=== PATIENT | female | born 1985 | race African-American/Black ===

== ENCOUNTER 2017-03-22 13:00 | Emergency (ER) | payer SELFPAY ==
[2017-03-22] MEDS ORDERED: Ibuprofen 200 MG TAB ONE (13:57)
== END 2017-03-22 14:02 | disposition home or self-care (01) ==
LOC: NAV ERS 13:00
DX: S63.501A Unspecified sprain of right wrist, initial encounter (principal); K21.9 Gastro-esophageal reflux disease without esophagitis; E66.9 Obesity, unspecified; Y04.2XXA Assault by strike against or bumped into by another person, initial encounter
CPT/HCPCS: 99283

== ENCOUNTER 2017-12-29 09:28 | Emergency (ER) | payer SELFPAY | END 2017-12-29 10:24 | disposition home or self-care (01) | LOC: NAV ERS 09:28 | DX: J02.9 Acute pharyngitis, unspecified (principal); K21.9 Gastro-esophageal reflux disease without esophagitis | CPT/HCPCS: 87081; 87430; 99283 ==

== ENCOUNTER 2018-03-05 14:46 | Emergency (ER) | payer SELFPAY ==
[2018-03-05] MEDS ORDERED: Adacel (T-DAP) 0.5 ML VIAL ONE (15:07)
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
== END 2018-03-05 15:53 | disposition home or self-care (01) ==
LOC: NAV ERS 14:46
DX: S62.367A Nondisplaced fracture of neck of fifth metacarpal bone, left hand, initial encounter for closed fracture (principal); S52.602A Unspecified fracture of lower end of left ulna, initial encounter for closed fracture; S40.022A Contusion of left upper arm, initial encounter; S00.531A Contusion of lip, initial encounter; K21.9 Gastro-esophageal reflux disease without esophagitis; F32.9 Major depressive disorder, single episode, unspecified; Y00.XXXA Assault by blunt object, initial encounter
CPT/HCPCS: 26600; 90471; 90715

== ENCOUNTER 2018-06-19 07:46 | Emergency (ER) | payer MEDICAID, SELFPAY ==
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
== END 2018-06-19 08:52 | disposition home or self-care (01) ==
LOC: NAV ERS 07:46
DX: S52.602A Unspecified fracture of lower end of left ulna, initial encounter for closed fracture (principal); K21.9 Gastro-esophageal reflux disease without esophagitis; F32.9 Major depressive disorder, single episode, unspecified; X50.1XXA Overexertion from prolonged static or awkward postures, initial encounter
CPT/HCPCS: 25530

== ENCOUNTER 2018-06-22 07:50 | Emergency (ER) | payer MEDICAID, SELFPAY | END 2018-06-22 08:20 | disposition home or self-care (01) | LOC: NAV ERS 07:50 | DX: S62.102D Fracture of unspecified carpal bone, left wrist, subsequent encounter for fracture with routine healing (principal); F32.9 Major depressive disorder, single episode, unspecified; K21.9 Gastro-esophageal reflux disease without esophagitis | CPT/HCPCS: 29125 ==

== ENCOUNTER 2018-12-04 08:43 | Emergency (ER) | payer SELFPAY ==
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
== END 2018-12-04 12:19 | disposition home or self-care (01) ==
LOC: NAV ERS 08:43
DX: S52.601A Unspecified fracture of lower end of right ulna, initial encounter for closed fracture (principal); S00.81XA Abrasion of other part of head, initial encounter; K21.9 Gastro-esophageal reflux disease without esophagitis; F32.9 Major depressive disorder, single episode, unspecified; Y04.0XXA Assault by unarmed brawl or fight, initial encounter
CPT/HCPCS: 25530; 70450; 70486

== ENCOUNTER 2019-02-15 16:30 | Emergency (ER) | payer OTHER, SELFPAY ==
[2019-02-15] MEDS ORDERED: Lidocaine 1% (PF) 30 ML VIAL ONE (16:58)
== END 2019-02-15 17:20 | disposition home or self-care (01) ==
LOC: NAV ERS 16:30
DX: L02.422 Furuncle of left axilla (principal); K21.9 Gastro-esophageal reflux disease without esophagitis; F32.9 Major depressive disorder, single episode, unspecified
CPT/HCPCS: 10060; 87070; 87077; 87186; 87205; J2001

== ENCOUNTER 2019-10-27 09:35 | Emergency (ER) | payer OTHER | END 2019-10-27 10:26 | disposition home or self-care (01) | LOC: NAV ERS 09:35 | DX: B34.9 Viral infection, unspecified (principal); F32.9 Major depressive disorder, single episode, unspecified; K21.9 Gastro-esophageal reflux disease without esophagitis | CPT/HCPCS: 99283 ==

== ENCOUNTER 2022-07-25 12:06 | Emergency (ER) | payer OTHER | END 2022-07-25 12:41 | disposition home or self-care (01) | LOC: NAV ERS 12:06 | DX: H92.03 Otalgia, bilateral (principal); K21.9 Gastro-esophageal reflux disease without esophagitis; Z79.899 Other long term (current) drug therapy | CPT/HCPCS: 99283 ==

== ENCOUNTER 2024-04-19 17:02 | Emergency (ER) | payer OTHER ==
[2024-04-19] MEDS ORDERED: Acetaminophen 500 MG TAB ONE (17:12)
[2024-04-19 17:59] LABS: Influenza A by NAA Not Detected (NotDetected); Influenza B by NAA Not Detected (NotDetected); SARS-CoV-2 NAA Rapid Test DETECTED (NotDetected)
== END 2024-04-19 18:41 | disposition home or self-care (01) ==
LOC: NAV ERS 17:02
DX: U07.1 COVID-19 (principal)
CPT/HCPCS: 99284

== ENCOUNTER 2024-06-15 15:34 | Emergency (ER) | payer MEDICAID | END 2024-06-15 16:00 | disposition home or self-care (01) | LOC: NAV ERS 15:34 | DX: J02.0 Streptococcal pharyngitis (principal) | CPT/HCPCS: 99282 ==

== ENCOUNTER 2024-08-17 16:48 | Emergency (ER) | payer MEDICAID, SELFPAY ==
[2024-08-17] MEDS ORDERED: Ibuprofen 200 MG TAB ONE (16:58)
[2024-08-17] MEDS ORDERED: Benzocaine/Menthol 1 LOZ LOZ PO SCH (17:15)
== END 2024-08-17 17:35 | disposition home or self-care (01) ==
LOC: NAV ERS 16:48
DX: J02.9 Acute pharyngitis, unspecified (principal)
CPT/HCPCS: 87081; 87430; 99283

== ENCOUNTER 2024-10-26 10:56 | Emergency (ER) | payer SELFPAY ==
[2024-10-26] MEDS ORDERED: Ibuprofen 200 MG TAB ONE (11:32)
[2024-10-26] MEDS ORDERED: Oxymetazoline HCl 0.05% (30 ML BOT) ONE (11:36)
== END 2024-10-26 13:03 | disposition home or self-care (01) ==
LOC: NAV ERS 10:56
DX: M54.2 Cervicalgia (principal)
CPT/HCPCS: 99283

== ENCOUNTER 2025-05-08 08:06 | Emergency (ER) | payer OTHER | END 2025-05-08 08:41 | disposition home or self-care (01) | LOC: NAV ERS 08:06 | DX: J18.9 Pneumonia, unspecified organism (principal) | CPT/HCPCS: 99283 ==

== ENCOUNTER 2025-06-05 11:23 | Emergency (ER) | payer OTHER | END 2025-06-05 12:09 | disposition home or self-care (01) | LOC: NAV ERS 11:23 | DX: S29.011A Strain of muscle and tendon of front wall of thorax, initial encounter (principal); I10 Essential (primary) hypertension; Z79.899 Other long term (current) drug therapy; X50.0XXA Overexertion from strenuous movement or load, initial encounter; Y99.0 Civilian activity done for income or pay | CPT/HCPCS: 96372; 99283; J1885 ==